=== PATIENT | male | born 1980 | race Caucasian/White ===

== ENCOUNTER 2018-04-02 15:14 | Inpatient (IN) | payer OTHER ==
[~2018-04-02] VITALS: Ht 180.3 cm; Wt 81.7 kg
[2018-04-02 15:29] VITALS: BP 121/65; PULSE 55; TEMP 98
[2018-04-02] MEDS ORDERED: CLARITIN 1010 MG/TAB PO (15:49)
[2018-04-02] MEDS ORDERED: CELEBREX 200MG200 MG PO (15:50)
[2018-04-02 19:11] VITALS: BP 118/61; PULSE 57; TEMP 98
[2018-04-02 23:57] VITALS: BP 102/56; PULSE 55; TEMP 98.2
[2018-04-03] VITALS (9 sets, daily range): BP systolic 99–130; BP diastolic 50–84; PULSE 43–59; TEMP 97.1–98.2
[2018-04-03 06:09] LABS: BASO # 0.1 (0.0-0.2); EOS # 0.3 (0.0-0.7); EOS % 5.5 % (0-4.0); GRAN # 2.4 (1.4-6.5); GRAN % 49.5 % (42.2-75.2); HEMATOCRIT 40.8 % (42.0-52.0); HEMOGLOBIN 13.7 g/dl (13.5-18.0); LYMPH # 1.7 (1.2-3.4); LYMPH % 33.5 % (20.0-51.0); MEAN CELL VOLUME 89 fl (80.0-100.0); MEAN CORPUSCULAR HEMOGLOBIN 30 pg (27.0-31.0); MEAN CORPUSCULAR HGB CONC 34 g/dl (33.0-37.0); MEAN PLATELET VOLUME 9.8 fl (7.4-10.4); MONO # 0.5 (0.1-0.6); MONO % 10.3 % (1.7-9.3); PLATELET COUNT 191 K/mm3 (130-400); RED BLOOD COUNT 4.57 M/mm3 (4.20-5.60); REDCELL DISTRIBUTION WIDTH-CV 12.5 % (11.5-14.5)
[2018-04-03 06:26] LABS: ALBUMIN 3.8 gm/dL (3.5-5.0); BILIRUBIN,TOTAL 1.8 mg/dL (0.0-1.0); CALCIUM 8.7 mg/dL (8.4-10.2); CREATININE, serum 0.87 mg/dL (0.66-1.25); POTASSIUM 4.7 mmol/L (3.4-5.0); TOTAL PROTEIN 6.8 gm/dL (6.4-8.2)
[2018-04-04] VITALS (12 sets, daily range): BP systolic 103–137; BP diastolic 54–77; PULSE 48–81; TEMP 97.9–98.6
[2018-04-04 07:33] LABS: ALBUMIN 3.8 gm/dL (3.5-5.0); BILIRUBIN,TOTAL 2.2 mg/dL (0.0-1.0); CALCIUM 8.6 mg/dL (8.4-10.2); CREATININE, serum 0.87 mg/dL (0.66-1.25); POTASSIUM 4.1 mmol/L (3.4-5.0); TOTAL PROTEIN 6.9 gm/dL (6.4-8.2)
[2018-04-05 00:44] VITALS: BP 108/48; PULSE 57; TEMP 98.4
[2018-04-05 07:19] LABS: BASO % 0.2 % (0.0-2.0); EOS % 0.3 % (0-4.0); GRAN # 6.4 (1.4-6.5); GRAN % 71.4 % (42.2-75.2); HEMATOCRIT 37.1 % (42.0-52.0); HEMOGLOBIN 12.4 g/dl (13.5-18.0); LYMPH # 1.4 (1.2-3.4); LYMPH % 15.4 % (20.0-51.0); MEAN CELL VOLUME 89 fl (80.0-100.0); MEAN CORPUSCULAR HEMOGLOBIN 30 pg (27.0-31.0); MEAN CORPUSCULAR HGB CONC 33 g/dl (33.0-37.0); MEAN PLATELET VOLUME 10.5 fl (7.4-10.4); MONO # 1.1 (0.1-0.6); MONO % 12.4 % (1.7-9.3); PLATELET COUNT 183 K/mm3 (130-400); RED BLOOD COUNT 4.17 M/mm3 (4.20-5.60)
[2018-04-05 07:29] LABS: ALBUMIN 3.5 gm/dL (3.5-5.0); CALCIUM 8.7 mg/dL (8.4-10.2); CREATININE, serum 0.81 mg/dL (0.66-1.25); POTASSIUM 4.2 mmol/L (3.4-5.0); TOTAL PROTEIN 6.3 gm/dL (6.4-8.2)
[2018-04-05] MEDS ORDERED: PERCOCET 325 MG1 TA2 PO (07:36)
[2018-04-05 07:52] VITALS: BP 104/51; PULSE 61; TEMP 98.4
== END 2018-04-05 10:09 | disposition home or self-care (01) | DRG 419 ==
LOC: MEDICAL 15:14
PROVIDERS: Nurse Practitioner Family; Physician Assistant; Surgery
PROC: 0FC98ZZ Extirpation of Matter from Common Bile Duct, Via Natural or Artificial Opening Endoscopic (ICD-10-PCS; 2018-04-03)
PROC: 0DNU4ZZ Release Omentum, Percutaneous Endoscopic Approach (ICD-10-PCS; 2018-04-04)
PROC: BF131ZZ Fluoroscopy of Gallbladder and Bile Ducts using Low Osmolar Contrast (ICD-10-PCS; 2018-04-04)
PROC: 0FT44ZZ Resection of Gallbladder, Percutaneous Endoscopic Approach (ICD-10-PCS; principal; 2018-04-04 10:00)
DX: K80.64 Calculus of gallbladder and bile duct with chronic cholecystitis without obstruction (principal); M25.551 Pain in right hip; G89.29 Other chronic pain; K66.0 Peritoneal adhesions (postprocedural) (postinfection)
CPT/HCPCS: 99222-AI; 99231-AI; 99239; C1769; G0378; J0690; J1100; J1170; J1885; J2405; J2704; J3010; J3480; Q9967

== ENCOUNTER → 2018-05-27 | Outpatient (CLI) | payer OTHER ==
[~2018-05-27] MED LIST: CELEBREX 200MG200 MG PO; CLARITIN 1010 MG/TAB PO; PERCOCET 325 MG1 TA2 PO
== END ==
LOC: COL.RAD 09:23
DX: M16.12 Unilateral primary osteoarthritis, left hip (principal)
CPT/HCPCS: J3301; Q9967